=== PATIENT | female | born 1930 | race African-American/Black ===

== ENCOUNTER → 2016-12-17 | Outpatient (CLI) | payer OTHER ==
[~2016-12-17] MED LIST: ASPIRIN EC81 M1 PO; CALCIUM 500 +1 EAC5 PO; CARVEDILOL25 MG PO; FUROSEMIDE 20 M20 M1 PO; QUINAPRIL 20 MG20 MG PO; ZOCOR 20 MG TAB20 M1 PO
--- NOTE | ~2016-12-17 | 2DMMODE ---
[facility] [place] [address] 2 D/M-MODE ECHOCARDIOGRAM Name: EASTON HARPER Room #: REG [facility]#: [id number] Admission: 12/17/16 Attend Phys: Prakash Wilcox MD Discharge: Date of : [birth year] Date of Service: 12/17/16 1006 Report #: [id number] THIS REPORT FOR: //name// Transthoracic Echocardiography Ordering physician: Prakash Wilcox MD Referring physician: Finn Shah MD Clinical Specialist Vascular: Beti Lema Indications/History: CM, Pacemaker, HTN, BP: 117 / HR: 80bpm Height: 60in Weight: 124.7lb 64 Study data: M-mode, complete 2D, complete spectral Doppler, and color Doppler. Location: Echo laboratory. Routine. Image quality was adequate. 2D measurements Normal Normal LVID ED 30.9mm 36-57 IVS ED 10.7mm 6-11 LVID ES 24.7mm 23-40 LVPW ED 10.2mm 6-11 LA volume 14.7ml/m2 16-28 AoRoot diam 29.5mm 21-37 index ED LVOT diameter 17mm 18-23 Findings: Left ventricle: The cavity size was normal. Wall thickness was increased in a pattern of mild LVH. Systolic function was mildly reduced. The estimated ejection fraction was in the range of 45% to 50%. Right ventricle: The cavity size was normal. Systolic function was normal. Ventricular septum: Paradoxical motion of septum. Right atrium: The atrium was normal in size. Pacer wire or catheter noted in right atrium. Left atrium: The atrium was mildly dilated. Volume index: 14.7ml/m2 (S). Aortic valve: Mildly calcified leaflets. Doppler: There [facility] [address] [place] [address] 2 D/M-MODE ECHOCARDIOGRAM Name: EASTON HARPER Room #: REG MARA Torrez#: [id number] Admission: 12/17/16 Attend Phys: Prakash Wilcox MD Discharge: Date of : [birth year] Date of Service: 12/17/16 1006 Report #: [id number] was no stenosis. No regurgitation. Peak velocity: 135.7cm/s (S). Mitral valve: Mildly thickened leaflets . Doppler: There was no evidence for stenosis. Trivial regurgitation. Peak E-wave velocity: 48.6cm/s. Peak A-wave velocity: 83.7cm/s. Tricuspid valve: Structurally normal valve. Doppler: There was no evidence for stenosis. Trivial regurgitation. Regurgitant peak velocity: 197cm/s. Peak RV-RA gradient: 16mm Hg (S). Pulmonic valve: Structurally normal valve. Doppler: There was no evidence for stenosis. Trivial regurgitation. Pericardium: There was no pericardial effusion. Aorta: Aortic root: The aortic root was normal in size. Pulmonary artery: Systolic pressure was estimated to be 21mm Hg. Diastolic function: Doppler parameters are consistent with abnormal left ventricular relaxation (grade 1 diastolic dysfunction). Systemic veins: Inferior vena cava: The vessel was normal in size; the respirophasic diameter changes were in the normal range (= 50%). Conclusions 1. Left ventricle: The cavity size was normal. Wall thickness was increased in a pattern of mild LVH. Systolic function was mildly reduced. The estimated ejection fraction was in the range of 45% to 50%. 2. Ventricular septum: Paradoxical motion of septum. 3. Right atrium: The atrium was normal in size. 4. Left atrium: The atrium was mildly dilated. 5. Aortic valve: There was no stenosis. 6. Mitral valve: Trivial regurgitation. 7. Tricuspid valve: Trivial regurgitation. <ELECTRONICALLY SIGNED> By: Prakash Wilcox MD 12/17/16 1116 1006 1116 Prakash Wilcox MD /milton
== END ==
LOC: CV 09:46
DX: I42.9 Cardiomyopathy, unspecified (principal); I10 Essential (primary) hypertension; Z95.0 Presence of cardiac pacemaker

== ENCOUNTER → 2017-07-27 | Outpatient (CLI) | payer OTHER | LOC: RAD 12:34 | DX: M25.552 Pain in left hip (principal) ==

== ENCOUNTER → 2018-07-11 | Outpatient (CLI) | payer OTHER ==
--- NOTE | ~2018-07-11 | 2DMMODE ---
[facility] [address] [place] [address] 2 D/M-MODE ECHOCARDIOGRAM Name: EASTON HARPER Room #: REG [facility]#: [id number] Admission: 07/11/18 Attend Phys: Prakash Wilcox MD Discharge: Date of : [birth year] Date of Service: 07/11/18 1108 Report #: [id number] THIS REPORT FOR: //name// APPROVED REPORT Study performed: 07/11/2018 10:18:28 EXAM: Comprehensive 2D, Doppler, and color-flow Echocardiogram Patient Location: Out-Patient Room #: Echo lab 2 Status: routine BSA: 1.55 HR: 65 bpm BP: 136/70 mmHg Rhythm: NSR Other Information Study Quality: Adequate Indications ICD: Cardiomyopathy 2D Dimensions LVEF(%): 45.38 (>50%) IVSd: 11.02 (7-11mm) LVOT Diam: 16.60 (18-24mm) LVDd: 41.19 mm PWd: 9.88 (7-11mm) Ascending Ao: 25.63 (22-36mm) LVDs: 32.01 (25-40mm) Aortic Root: 23.70 mm IVC: 12.00 mm Feldman's LVEF: 45.38 % Volumes Left Atrial Volume (Systole) Single Plane 4CH: 20.88 mL Single Plane 2CH: 20.58 mL LA ESV Index: 15.00 mL/m2 Aortic Valve AoV Peak Joseph.: 1.03 m/s AO Peak Gr.: 4.20 mmHg LVOT Max P.99 mmHg LVOT Max V: 0.86 m/s FAUSTINA Vmax: 1.82 cm2 Mitral Valve E/A Ratio: 0.4 [facility] [address] [address] 2 D/M-MODE ECHOCARDIOGRAM Name: EASTON HARPER Room #: REG [facility]#: [id number] Admission: 07/11/18 Attend Phys: Prakash Wilcox MD Discharge: Date of : [birth year] Date of Service: 07/11/18 1108 Report #: [id number] MV Decel. Time: 366.15 ms MV E Max Joseph.: 0.37 m/s MV A Joseph.: 0.90 m/s MV PHT: 106.18 ms IVRT: 189.16 ms Pulmonary Valve PV Peak Joseph.: 0.69 m/s PV Peak Gr.: 1.90 mmHg Left Ventricle The left ventricle is normal size. Mild concentric left ventricular hypertrophy. Left ventricular systolic function is mildly decreased. LVEF is 45%. Grade I - abnormal relaxation pattern. Right Ventricle The right ventricle is normal size. The right ventricular systolic function is normal. Device lead is present in the right ventricle. Atria The left atrium size is normal. The right atrium size is normal. Device lead is present in the right atrium. Aortic Valve The aortic valve is normal in structure. No aortic regurgitation is present. There is no aortic valvular stenosis. Mitral Valve The mitral valve is normal in structure. Trace mitral regurgitation. No evidence of mitral valve stenosis. Tricuspid Valve The tricuspid valve is normal in structure. There is no tricuspid valve regurgitation noted. Pulmonic Valve The pulmonary valve is normal in structure. There is no pulmonic valvular regurgitation. Great Vessels The aortic root is normal in size. IVC is normal in size and collapses >50% with inspiration. Pericardium There is no pericardial effusion. <Conclusion> [facility] [address] [place] [address] 2 D/M-MODE ECHOCARDIOGRAM Name: EASTON HARPER Room #: REG [facility]#: [id number] Admission: 07/11/18 Attend Phys: Prakash Wilcox MD Discharge: Date of : [birth year] Date of Service: 07/11/18 1108 Report #: [id number] The left ventricle is normal size. Mild concentric left ventricular hypertrophy. Left ventricular systolic function is mildly decreased. Grade I - abnormal relaxation pattern. The right ventricle is normal size. Device lead is present in the right ventricle. The left atrium size is normal. The right atrium size is normal. Device lead is present in the right atrium. There is no aortic valvular stenosis. Trace mitral regurgitation. There is no tricuspid valve regurgitation noted. <ELECTRONICALLY SIGNED> By: Prakash Wilcox MD 07/11/18 1108 1108 1108 Prakash Wilcox MD /INF
== END ==
LOC: CV 09:51
DX: I51.7 Cardiomegaly (principal); I25.10 Atherosclerotic heart disease of native coronary artery without angina pectoris; I42.9 Cardiomyopathy, unspecified